=== PATIENT | male | born 2000 | race Caucasian/White ===

== ENCOUNTER 2018-09-26 07:34 | Emergency (ER) | payer MEDICAID ==
--- NOTE | 2018-09-26 07:56 | C.PDOC ---
History Of Present Illness Pt is a 18 yr old male who is c/o very bad cough x 2 wks (with green/yellow phlegm), sore throat x 2 wks, and headache/fever/bodyaches x 2 days. Last took antipyretic around 12 midnight. The first day of the fever was on Thursday. Advil doesn't help his symptoms much. Tmax was 102.5F about 12 hrs ago. No flu shot this season. Immunizations are UTD. Pt is a student at [employer] which did have an outbreak of 2 meningitis cases last month. Light makes his headache worse. No sneezing. Pt has not been eating much because food makes him nauseous. PMD: Josh Streeter [employer] at [facility] Time Seen by Provider: 09/26/18 07:52 Chief Complaint (Nursing): Headache History Per: Patient Onset/Duration Of Symptoms: Days Past Medical History Reviewed: Historical Data, Nursing Documentation, Vital Signs Vital Signs: Last Vital Signs Temp 100.1 F H 09/26/18 07:42 Pulse 90 09/26/18 07:42 Resp 20 09/26/18 07:42 BP 119/71 09/26/18 07:42 Pulse Ox 100 09/26/18 07:42 - Medical History Other PMH: Scoliosis - [facility] Procedures APPLICATION OF SPLINT (10/02/14) Family History: States: Diabetes - Social History Hx Tobacco Use: No Hx Alcohol Use: No Hx Substance Use: No - Immunization History Hx Tetanus Toxoid Vaccination: Yes Review Of Systems Except As Marked, All Systems Reviewed And Found Negative. Constitutional: Positive for: Fever Eyes: Positive for: Pain (photophobia) Cardiovascular: Negative for: Chest Pain Respiratory: Positive for: Cough Gastrointestinal: Positive for: Nausea Genitourinary: Negative for: Dysuria Musculoskeletal: Negative for: Neck Pain Skin: Negative for: Rash Neurological: Negative for: Weakness, Confusion Physical Exam - Physical Exam Appears: Well, Non-toxic, No Acute Distress Skin: Normal Color, Warm, Dry Head: Atraumatic Eye(s): bilateral: Normal Inspection, Other (No photophobia) Ear(s): Bilateral: Normal Nose: Normal Oral Mucosa: Moist Tongue: Normal Appearing Lips: Normal Appearing Teeth: Normal Dentition Gingiva: Normal Appearing Throat: Erythema Neck: Normal, Supple, Other (no nuchal rigidity. neck is not stiff) Lymphatic: Deferred Chest: Symmetrical Cardiovascular: Rhythm Regular, No Murmur Respiratory: Normal Breath Sounds, No Rales, No Rhonchi, No Wheezing Gastrointestinal/Abdominal: Normal Exam, Bowel Sounds, Soft, No Tenderness Rectal: Deferred Back: Normal Inspection Extremity: Normal ROM, Other (pain at joints with movement of knees) Extremity: Bilateral: Atraumatic Pulses: Left Radial: Normal, Right Radial: Normal Neurological/Psych: Oriented x3, Normal Motor, Normal Sensation, Other (negative kernigs, negative brudzinskis) ED Course And Treatment - Laboratory Results Result Diagrams: 09/26/18 08:23 09/26/18 08:23 O2 Sat by Pulse Oximetry: 100 Medical Decision Making Medical Decision Making: Initial Impression: Fever, cough, MILLS, sore throat Differential diagnosis includes but is not limited to: influenza, strep throat, pneumonia, meningitis (currently afebrile) Initial Plan: Will check labs and give meds for MILLS/joint pain. Will also get CT of head. Progress note: Headache resolving, pt feels much better. Pt is influenza positive and CT shows sinusitis. Will d/c on Tamiflu (for flu) and on Augmentin (for sinusitis). / Disposition - Disposition Referrals: Josh Streeter, DNP, SENIOR [employer]ING DATA ANALYST [Advanced Practice Nurse] - Disposition: HOME/ ROUTINE Disposition Time: 09:40 Condition: IMPROVED Additional Instructions: Mr. Caputo, thank you for letting us take care of you today. Return to the ER if your symptoms worsen, or if any problems. Take the medication listed below as prescribed. Follow up with Josh Streeter in a few days for a re-evaluation. Prescriptions: Amoxicillin/Clavulanate [Augmentin 875 MG-125 MG] 1 tab PO BID #14 tab Ibuprofen [Motrin] 1 tab PO Q8 PRN #30 tab PRN Reason: Fever >100.4 F Oseltamivir Cap [Tamiflu] 1 tab PO BID #10 cap Instructions: Sinusitis in Adults, Flu, Adult (DC) Forms: [employer] (Latvian) Print Language: BELARUSIAN - POA Present On Arrival: None - Clinical Impression Clinical Impression: Sinusitis, Influenza A
[2018-09-26] MEDS ORDERED: Sodium Chloride 0.9% 1,000 ML IV ONE ×2 (08:08→08:58)
[2018-09-26] MEDS ORDERED: Dexamethasone 4 mg/1 ml IV STA (08:10)
[2018-09-26 08:29] LABS: BASO # 0.1 K/uL (0.0-0.2); HEMOGLOBIN 11.6 g/dL (12.0-18.0); LYMPH # 1.4 K/uL (1.0-4.3); LYMPH % 22.3 % (20.0-40.0); MEAN CELL VOLUME 59.3 fL (80.0-94.0); MEAN CORPUSCULAR HEMOGLOBIN 19.3 pg (27.0-31.0); MEAN CORPUSCULAR HGB CONC 32.6 g/dL (33.0-37.0); MEAN PLATELET VOLUME 8.4 fL (7.2-11.7); MONO % 16.9 % (0.0-10.0); NEUT # 3.7 K/uL (1.8-7.0); NEUT % 59.8 % (50.0-75.0); RBC 5.99 Mil/uL (4.40-5.90); RED CELL DISTRIBUTION WIDTH 15.7 % (11.5-14.5); WHITE BLOOD COUNT 6.1 K/uL (4.8-10.8)
[2018-09-26 08:38] LABS: VENOUS BLOOD GAS BASE EXCESS 2.5 mmol/L (0.0-2.0); VENOUS BLOOD GAS PCO2 45 mmHg (40-60); VENOUS BLOOD GAS PO2 29 mm/Hg (30-55)
[2018-09-26 08:39] LABS: INR 1.5; PROTHROMBIN TIME 16.8 SECONDS (9.7-12.2)
[2018-09-26 08:49] LABS: ALB/GLOB RATIO 1.3 (1.0-2.1); ALBUMIN 4.5 g/dL (3.5-5.0); ALT/SGPT 15 U/L (21-72); AST/SGOT 31 U/L (17-59); BLOOD UREA NITROGEN 17 mg/dL (9-20); CALCIUM 9.1 mg/dl (8.6-10.4); GFR NON-AFRICAN AMERICAN > 60
[2018-09-26] MEDS ORDERED: Sodium Chloride 0.9% 1,000 ML ONE (09:06)
--- NOTE | 2018-09-26 09:20 | CT ---
Date of service: 09/26/2018 PROCEDURE: CT HEAD WITHOUT CONTRAST. HISTORY: Pt has headache/fever; on resp isolation COMPARISON: None available. TECHNIQUE: Axial computed tomography images were obtained through the head/brain without intravenous contrast. Radiation dose: Total exam DLP = 1132.85 mGy-cm. This CT exam was performed using one or more of the following dose reduction techniques: Automated exposure control, adjustment of the mA and/or kV according to patient size, and/or use of iterative reconstruction technique. FINDINGS: HEMORRHAGE: No intracranial hemorrhage. BRAIN: No mass effect or edema. No atrophy or chronic microvascular ischemic changes. VENTRICLES: Unremarkable. No hydrocephalus. CALVARIUM: Unremarkable. PARANASAL SINUSES: There is complete opacification of visualized right maxillary sinus. There is mucosal thickening and air-fluid level in the left maxillary sinus. MASTOID AIR CELLS: Unremarkable as visualized. No inflammatory changes. OTHER FINDINGS: None. IMPRESSION: No evidence of acute intracranial hemorrhage mass effect or midline shift. Complete opacification of the visualized maxillary sinus and mucosal thickening with air-fluid level in the left maxillary sinus suggestive of sinusitis.
[2018-09-26 09:33] VITALS: BP 110/61; PULSE 62; RESP 16; TEMP 98.7
[2018-09-26 09:43] VITALS: O2SAT 100
[2018-09-26 09:56] LABS: URINE BILIRUBIN NEGATIVE (NEGATIVE); URINE BLOOD NEGATIVE (NEGATIVE); URINE CLARITY Hazy (Clear); URINE COLOR Yellow (YELLOW); URINE GLUCOSE (UA) NORMAL (Normal); URINE LEUKOCYTE ESTERASE NEG Leu/uL (Negative); URINE PROTEIN NEGATIVE (NEGATIVE); URINE UROBILINOGEN NORMAL mg/dL (0.2-1.0)
[2018-09-26 10:01] LABS: BARBITURATES, UR NEGATIVE (NEGATIVE); BENZODIAZEPINES, UR NEGATIVE (NEGATIVE); OPIATES, UR NEGATIVE (NEGATIVE); PHENCYCLIDINE, UR NEGATIVE (NEGATIVE)
--- NOTE | 2018-09-26 11:07 | RAD ---
Date of service: 09/26/2018 HISTORY: Cough fever; on resp isolation COMPARISON: No prior. TECHNIQUE: Chest PA and lateral views FINDINGS: LUNGS: No active pulmonary disease. PLEURA: No significant pleural effusion identified. No pneumothorax apparent. CARDIOVASCULAR: No aortic atherosclerotic calcification present. Normal cardiac size. No pulmonary vascular congestion. OSSEOUS STRUCTURES: No significant abnormalities. VISUALIZED UPPER ABDOMEN: Normal. OTHER FINDINGS: None. IMPRESSION: No radiographic evidence of pneumonia.
== END 2018-09-26 09:51 | disposition home or self-care (01) ==
LOC: C.ER 07:34
DX: J10.1 Influenza due to other identified influenza virus with other respiratory manifestations (principal); J32.9 Chronic sinusitis, unspecified
CPT/HCPCS: 70450; 71046; 80053; 80324; 80345; 80346; 80349; 80353; 80358; 80361; 81001; 82803; 83735; 83992; 84100; 85025; 85610; 85651; 85730; 87040; 87070; 87086; 87430; 87804; 96361; 96374; 99285; J1100; J7030